=== PATIENT | male | born 1975 | race Caucasian/White ===

== ENCOUNTER 2018-02-01 22:55 | Emergency (ER) | payer SELFPAY ==
[2018-02-01] MEDS ORDERED: Aspirin 81 MG Tab.Chew PO ONE (23:05)
[2018-02-01] MEDS ORDERED: Nitroglycerin 0.4 MG Tab.SL SL PRN (23:05)
--- NOTE | 2018-02-01 23:07 | EDM.PDOC ---
ED HPI GENERAL MEDICAL PROBLEM - General Chief Complaint: Chest Pain Stated Complaint: CHEST PAIN Time Seen by Provider: 02/01/18 23:02 - History of Present Illness INITIAL COMMENTS - FREE TEXT/NARRATIVE: HISTORY AND PHYSICAL: History of present illness: Patient's 42-year-old white male gentleman concern of substernal chest heaviness that started 20 minutes prior to arrival he states he felt dizzy and almost passed out he's had no nausea no diaphoresis no vomiting no palpitations he denies known cardiac disease he denies history of hypertension or diabetes he states he still has pain on arrival here that's mild to moderate intensity Review of systems: As per history of present illness and below otherwise all systems reviewed and negative. Past medical history: As per history of present illness and as reviewed below otherwise noncontributory. Surgical history: As per history of present illness and as reviewed below otherwise noncontributory. Social history: No reported history of drug or alcohol abuse. Family history: As per history of present illness and as reviewed below otherwise noncontributory. Physical exam: HEENT: Atraumatic, normocephalic, pupils reactive, negative for conjunctival pallor or scleral icterus, mucous membranes moist, throat clear, neck supple, nontender, trachea midline. Lungs: Clear to auscultation, breath sounds equal bilaterally, chest nontender. Heart: S1S2, regular, negative for clicks, rubs, or JVD. Abdomen: Soft, nondistended, nontender. Negative for masses or hepatosplenomegaly. Negative for costovertebral tenderness. Pelvis: Stable nontender. Genitourinary: Deferred. Rectal: Deferred. Extremities: Atraumatic, negative for cords or calf pain. Neurovascular unremarkable. Neuro: Awake, alert, oriented. Cranial nerves II through XII unremarkable. Cerebellum unremarkable. Motor and sensory unremarkable throughout. Exam nonfocal. Diagnostics: CBC CMP PT/INR troponin and chest x-ray EKG Therapeutics: IV O2 monitor aspirin 324 mg by mouth sublingual nitroglycerin as directed Impression: # 1 chest pain #2 near-syncope Definitive disposition and diagnosis as appropriate pending reevaluation and review of above. mid-chest Pain Score (Numeric/FACES): 0 - Related Data Allergies Allergy/AdvReac Type Severity Reaction Status Date / Time No Known Allergies Allergy Verified 02/01/18 23:04 Home Meds: Home Meds . [No Known Home Meds] 02/01/18 [History] ED ROS GENERAL - Review of Systems Review Of Systems: ROS reveals no pertinent complaints other than HPI. ED EXAM, GENERAL - Physical Exam Exam: See Below (See dictation) Course - Vital Signs Last Recorded V/S: Last Vital Signs Temp 36.7 C 02/02/18 00:33 Pulse 73 02/02/18 00:33 Resp 18 02/02/18 00:33 BP 116/64 02/02/18 00:33 Pulse Ox 96 02/02/18 00:33 - Orders/Labs/Meds Orders: Active Orders 24 hr Category Date Time Status EKG Documentation Completion [RC] STAT Care 02/01/18 23:03 Active Chest 1V Frontal [CR] Stat Exams 02/01/18 23:03 Taken Labs: Laboratory Tests 02/01/18 02/01/18 02/01/18 Range/Units 23:03 23:03 23:03 WBC 10.34 (4.0-11.0) K/uL RBC 5.52 (4.50-5.90) M/uL Hgb 16.2 (13.0-17.0) g/dL Hct 46.3 (38.0-50.0) % MCV 83.9 (80.0-98.0) fL MCH 29.3 (27.0-32.0) pg MCHC 35.0 (31.0-37.0) g/dL RDW Std Deviation 38.1 (28.0-62.0) fl RDW Coeff of Filiberto 13 (11.0-15.0) % Plt Count 231 (150-400) K/uL MPV 10.60 (7.40-12.00) fL Neut % (Auto) 46.7 L (48.0-80.0) % Lymph % (Auto) 43.1 H (16.0-40.0) % [place] % (Auto) 8.1 (0.0-15.0) % Eos % (Auto) 1.8 (0.0-7.0) % Baso % (Auto) 0.3 (0.0-1.5) % Neut # (Auto) 4.8 (1.4-5.7) K/uL Lymph # (Auto) 4.5 H (0.6-2.4) K/uL [place] # (Auto) 0.8 (0.0-0.8) K/uL Eos # (Auto) 0.2 (0.0-0.7) K/uL Baso # (Auto) 0.0 (0.0-0.1) K/uL Nucleated RBC % 0.0 /100WBC Nucleated RBCs # 0 K/uL INR 0.96 Sodium 137 (136-148) mmol/L Potassium 3.6 (3.5-5.1) mmol/L Chloride 101 (98-107) mmol/L Carbon Dioxide 29.4 (21.0-32.0) mmol/L BUN 14 (7.0-18.0) mg/dL Creatinine 1.0 (0.8-1.3) mg/dL Est Cr Clr Drug Dosing TNP Estimated GFR (MDRD) > 60.0 ml/min Glucose 104 (74-106) mg/dL Calcium 9.4 (8.5-10.1) mg/dL Total Bilirubin 0.3 (0.2-1.0) mg/dL AST 29 (15-37) IU/L ALT 110 H (14-63) IU/L Alkaline Phosphatase 108 (46-116) U/L Troponin I < 0.050 (0.000-0.056) ng/mL Total Protein 7.7 (6.4-8.2) g/dL Albumin 4.1 (3.4-5.0) g/dL Globulin 3.6 H (2.0-3.5) g/dL Albumin/Globulin Ratio 1.1 L (1.3-2.8) Meds: Medications Discontinued Medications Generic Name Dose Route Start Last Admin Trade Name Freq PRN Reason Stop Dose Admin Aspirin 324 mg 02/01/18 23:05 02/01/18 23:20 Aspirin PO 02/01/18 23:06 324 mg ONETIME ONE Administration Nitroglycerin 0.4 mg 02/01/18 23:05 02/01/18 23:09 Nitrostat SL 0.4 mg Q5M PRN Administration Chest Pain Departure - Departure Time of Disposition: 08:14 Disposition: DC/Tfer to Acute Hospital 02 Condition: Good Clinical Impression: Chest pain - Discharge Information Referrals: PCP,None [Primary Care Provider] - Forms: ED Department Discharge - My Orders Last 24 Hours: My Active Orders 02/01/18 23:03 EKG Documentation Completion [RC] STAT Chest 1V Frontal [CR] Stat - Assessment/Plan Last 24 Hours: My Active Orders 02/01/18 23:03 EKG Documentation Completion [RC] STAT Chest 1V Frontal [CR] Stat
[2018-02-01 23:37] LABS: CHLORIDE,CL 101 mmol/L (98-107); SODIUM,NA 137 mmol/L (136-148)
--- NOTE | 2018-02-02 11:34 | CR ---
EXAM DATE: 02/01/18 PATIENT'S AGE: 42 Patient: OSIEL DE LEON Facility: [place], [place] Site . Site : [id number] Study: XRay Chest [id number]/25/2018 11:17:28 PM Ordering Physician: Doctor Way Final Report: INDICATION: Chest pain, shortness of breath, upper extremity tingling TECHNIQUE: Chest radiograph 1 view COMPARISON: None FINDINGS: Mediastinum: The mediastinum is normal in appearance. The heart silhouette is normal in size and morphology. Lung: Both lungs are unremarkable in appearance. No sign of pleural effusion seen. No pneumothorax is identified. Musculoskeletal: Unremarkable for age. IMPRESSION: 1. No acute cardiopulmonary disease is seen. Dictated by: Edgar Gtz MD @ 02/01/2018 23:23:16 (Electronic Signature) Report Signed by Proxy. [facility]
== END 2018-02-02 00:40 ==
LOC: MW.ED 22:55
DX: R07.9 Chest pain, unspecified (principal); R55 Syncope and collapse
CPT/HCPCS: 36415; 71045; 80053; 84484; 85025; 85610; 93005; 99285; A9270